=== PATIENT | female | born 1965 | race Caucasian/White ===

== ENCOUNTER 2020-09-24 15:01 | Emergency (ER) | payer OTHER ==
[~2020-09-24] VITALS: Ht 165.1 cm; Wt 73.9 kg
[2020-09-24] MEDS ORDERED: TDAP [DIPH/PERTUSSIS/TET] 0.5 ML VIAL IM ONE ×2 (15:30→15:33)
[2020-09-24] MEDS ORDERED: MUPI22OI2 TP (15:34)
[2020-09-24] MEDS ORDERED: BACITRACIN ZINC OINT PACKET 1 EA PACKET TP ONE ×2 (16:07→16:30)
[2020-09-24 16:21] VITALS: BP 139/81
--- NOTE | 2020-09-24 16:21 | NUR ---
Patient discharged to home in stable condition. Written and verbal after care instructions given. Patient verbalizes understanding of instruction.
== END 2020-09-24 16:21 | disposition home or self-care (01) ==
LOC: ER 15:08
DX: T22.212A Burn of second degree of left forearm, initial encounter (principal); I10 Essential (primary) hypertension; X19.XXXA Contact with other heat and hot substances, initial encounter; Y93.89 Activity, other specified; Y92.090 Kitchen in other non-institutional residence as the place of occurrence of the external cause; Y99.8 Other external cause status
CPT/HCPCS: 90715

== ENCOUNTER 2021-03-08 16:00 | Emergency (ER) | payer MEDICAID ==
[~2021-03-08] VITALS: Ht 160 cm; Wt 72.6 kg
[~2021-03-08 16:00] MED LIST: MUPI22OI2 TP
--- NOTE | 2021-03-08 16:11 | NUR ---
TO ER BED 4, C/O HEARING VOICES, URINE COLLECTED, AWAITING MD NASH
[2021-03-08] MEDS ORDERED: OLANZAPINE 10 MG VIAL IM ONE (17:00)
--- NOTE | 2021-03-08 17:17 | NUR ---
COVID SWAB DONE AND SENT TO LAB
[2021-03-08 17:26] LABS: BILIRUBIN,URINE NEGATIVE (NEGATIVE); COLOR,URINE YELLOW (YELLOW); LEUKOCYTE ESTERASE ,URINE NEGATIVE (NEGATIVE); NITRITE, URINE NEGATIVE (NEGATIVE); PH,URINE 5.5 (5.0-8.0); PROTEIN,URINE NEGATIVE (NEGATIVE); UGLUCOSE NEGATIVE (NEGATIVE); UROBILINOGEN,URINE 0.2 EU/dL (0.2)
[2021-03-08 17:27] LABS: BASOPHILS # (AUTO) 0.1 K/uL (0.0-0.2); BASOPHILS % (AUTO) 0.8 % (0.0-2.0); EOSINOPHILS % (AUTO) 0.3 % (0.0-6.0); HEMATOCRIT 41 % (33-45); HEMOGLOBIN 13.7 g/dL (11.5-14.8); LYMPHOCYTES % (AUTO) 28.2 % (20.0-44.0); MEAN CORPUSCULAR HGB CONC 34 g/dl (31.0-36.0); MEAN CORPUSCULAR VOLUME 90 fL (82-100); MONOCYTES # (AUTO) 0.4 K/uL (0.1-1.30); MONOCYTES % (AUTO) 5.2 % (2.0-12.0); NEUTROPHILS # (AUTO) 4.6 K/uL (1.8-8.9); NEUTROPHILS % (AUTO) 65.5 % (43.0-81.0); PLATELET COUNT (AUTO) 220 K/uL (150-450); RED BLOOD CELL COUNT(AUTO) 4.51 MIL/uL (4.0-5.2); WHITE BLOOD COUNT (AUTO) 7.1 K/uL (4.3-11.0)
[2021-03-08] MEDS ORDERED: ARIPIPRAZOLE 2 MG TABLET PO ONE (17:30)
[2021-03-08 17:33] LABS: CALCIUM, SERUM 9.1 mg/dL (8.5-10.1); CARBON DIOXIDE 26 mmol/L (21-32); CHLORIDE 108 mmol/L (98-107); CREATININE 0.7 mg/dL (0.6-1.3); GLUCOSE 105 mg/dL (74-106); POTASSIUM 3.7 mmol/L (3.5-5.1); SODIUM SERUM 143 mmol/L (136-145); UREA NITROGEN, BLOOD 12 mg/dL (7-18)
[2021-03-08 17:39] LABS: ALANINE AMINOTRANSFERASE 22 U/L (12-78); ALBUMIN 3.8 g/dL (3.4-5.0); ALCOHOL, BLOOD < 3 mg/dL (0-0); ALKALINE PHOSPHATASE 111 U/L (46-116); ASPARTATE AMINOTRANSFERASE 17 U/L (15-37); BILIRUBIN,DIRECT 0.1 mg/dL (0.0-0.2); BILIRUBIN,TOTAL 0.5 mg/dL (0.2-1.0); TOTAL PROTEIN, SERUM 7.7 g/dL (6.4-8.2)
[2021-03-08 17:44] LABS: ACETAMINOPHEN 0 ug/ml (10-30)
[2021-03-08 17:47] LABS: BACTERIA,URINE RARE /HPF (None Seen); MUCUS,URINE Many /LPF (None Seen); RBC,URINE 0-2 /HPF (0-2); WBC,URINE 0-2 /HPF (0-3)
[2021-03-08] MEDS ORDERED: ARIPIPRAZOLE 2 MG TABLET ONE (17:54)
[2021-03-08 18:06] VITALS: BP 140/80
--- NOTE | 2021-03-08 18:29 | NUR ---
CLEARED MEDICALLY PER MD
--- NOTE | 2021-03-08 18:30 | NUR ---
STENCIL CUTTER WILL COME IN AN HOUR
--- NOTE | 2021-03-08 18:30 | NUR ---
CALLED [facility]ISIS CLINICAN[facility]. SHE WILL COME IN AN HOUR.
--- NOTE | 2021-03-08 18:39 | NUR ---
Luis henderson in [facility] - 03/08/21 at 1841 by SANDRINE CRISIS CLINICAN CALLED AND VISIT CANCELLED
[2021-03-08] MEDS ORDERED: ARIP5TAB10 PO (18:40)
--- NOTE | 2021-03-08 18:40 | NUR ---
CALLED CRISIS CLINICAN TO CANCEL VISIT BECAUSE PT IS GETTING DISCHARGED
--- NOTE | 2021-03-08 18:44 | NUR ---
PER PT, SHE'S FEELING BETTER AND DENIES ANY HALLUCINATIONS.
== END 2021-03-08 18:45 | disposition home or self-care (01) ==
LOC: ER 16:08
DX: R44.0 Auditory hallucinations (principal); I10 Essential (primary) hypertension; G47.00 Insomnia, unspecified
CPT/HCPCS: 36415; 80048; 80076; 80143; 80307; 80320; 81001; 85025; 87426; 99283; C9803; G0480

== ENCOUNTER 2023-04-15 05:12 | Emergency (ER) | payer MEDICAID ==
[~2023-04-15] VITALS: Ht 160 cm; Wt 78.9 kg
[~2023-04-15 05:12] MED LIST changes: +ARIP5TAB10 PO
[2023-04-15] MEDS ORDERED: IV NS 0.9% 1,000 ML BAG IV ONE (06:30)
[2023-04-15] MEDS ORDERED: ACETAMINOPHEN ES 500 MG TABLET PO ONE (06:30)
[2023-04-15] MEDS ORDERED: ACETAMINOPHEN ES 500 MG TABLET ONE (06:34)
[2023-04-15] MEDS ORDERED: KETOROLAC TROMETHAMINE INJ 30 MG/ML VIAL ONE (06:36)
[2023-04-15] MEDS ORDERED: LIDO30AD10 TP (06:41)
[2023-04-15] MEDS ORDERED: IBUP-1955 PO (06:41)
[2023-04-15] MEDS ORDERED: HYDR-3980 PO (06:41)
[2023-04-15] MEDS ORDERED: KETOROLAC TROMETHAMINE INJ 30 MG/ML VIAL IM ONE (07:00)
[2023-04-15 09:17] VITALS: BP 138/75; TEMP 98.3; O2SAT 99
== END 2023-04-15 09:19 | disposition home or self-care (01) ==
LOC: ER 05:20
DX: S22.31XA Fracture of one rib, right side, initial encounter for closed fracture (principal); R07.89 Other chest pain; I10 Essential (primary) hypertension; F32.A Depression, unspecified; F41.9 Anxiety disorder, unspecified; Z79.899 Other long term (current) drug therapy; X58.XXXA Exposure to other specified factors, initial encounter; Y93.89 Activity, other specified; Y92.89 Other specified places as the place of occurrence of the external cause; Y99.8 Other external cause status
CPT/HCPCS: 99283; 96372; 71100; J1885